=== PATIENT | female | born 1990 | race Caucasian/White ===

== ENCOUNTER 2016-07-04 17:47 | Emergency (ER) | payer BC, OTHER ==
[2016-07-04] MEDS ORDERED: NS 0.9% 1000 ML* 1,000 ML IV SCH (19:00)
[2016-07-04 19:20] LABS: Hematocrit 41 % (35-47); Hemoglobin 13.6 g/dl (12.0-16.0); Mean Corpuscular HGB Conc 33 g/dl (31-36); Mean Corpuscular Hemoglobin 32 pg (27-31); Mean Corpuscular Volume 96 fL (80-97); Mean Platelet Volume 7 um3 (7.4-10.4); Red Blood Count 4.21 10^6/ul (4.0-5.4); Red Cell Distribution Width 13 % (10.5-15); White Blood Count 11.4 10^3/ul (3.5-10.8)
[2016-07-04 19:35] LABS: Albumin 4.1 g/dL (3.2-5.2); BUN/Creatinine Ratio 18.4 (8-20); C Reactive Protein 3.15 mg/L (< 5.00); Calcium 9.4 mg/dL (8.6-10.3); EGFR Non-African American 79.3 (>60); Potassium 3.3 mmol/L (3.5-5.0); Total Bilirubin 0.4 mg/dL (0.2-1.0); Total Protein 7.1 g/dL (6.4-8.9)
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
[2016-07-04 22:09] VITALS: BP 115/64
--- NOTE | 2016-07-04 22:11 | RAD ---
HISTORY: Pelvic cramping in a female Last menstrual period is dated May 22, 2016 yielding an estimated gestational age by last menstrual period of 6 weeks and 1 day. COMPARISONS: None TECHNIQUE: Multiple transverse and longitudinal ultrasound images were obtained of the pelvis using grayscale, color flow, spectral and M-mode sonographic imaging. FINDINGS: UTERUS: The uterus is normal in shape, size, contour, and echotexture. GESTATION: A gestational sac is identified measuring 1.1 cm in mean diameter which corresponds to a gestational age of 5 weeks and 5 days. No pole is visualized. A 3 mm yolk sac is visualized. 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 CUL-DE-SAC: There is no free fluid within the cul-de-sac. RIGHT OVARY: The right ovary measures 3.0 x 2.3 x 2.3 cm. LEFT OVARY: The left ovary measures 4.1 x 2.0 x 3.4 cm. Within the left ovary is a mildly echogenic and avascular structure measuring 2.1 cm in greatest dimension which could represent a corpus luteum. IMPRESSION: There is a gestational sac with a yolk sac in the lumen without visualization of a pole. Diagnostic possibilities include spontaneous , gestation too early to visualize or ectopic . Close clinical and sonographic follow-up including trending beta hCG is advised.
[2016-07-04 22:33] LABS: Urine Bacteria Absent (Absent); Urine Bilirubin Negative (Negative); Urine Glucose Negative (Negative); Urine Nitrite Negative (Negative)
== END 2016-07-04 22:07 | disposition home or self-care (01) ==
LOC: ED 17:47
DX: O26.891 Other specified pregnancy related conditions, first trimester (principal); R10.31 Right lower quadrant pain; O99.331 Smoking (tobacco) complicating pregnancy, first trimester; Z3A.01 Less than 8 weeks gestation of pregnancy
CPT/HCPCS: 36415; 76817; 80053; 81003; 81015; 83030; 83605; 83690; 84702; 85025; 86140; 99283

== ENCOUNTER 2016-08-10 11:49 | Emergency (ER) | payer BC ==
[2016-08-10 11:56] VITALS: BP 105/56
[2016-08-10] MEDS ORDERED: Acetaminop/Codeine 30 MG TAB* 1 TAB (300 MG/30 MG) PO ONE (13:01)
[2016-08-10] MEDS ORDERED: Clindamycin CAP* 150 MG PO ONE (13:10)
--- NOTE | 2016-08-10 13:15 | UC ---
Dental HPI - HPI Summary HPI Summary: L rear tooth pain worsening for several days. States the tooth broke weeks/ months ago but never bothered her before now. Taking acetaminophen without relief, has noticed swelling along jaw today. Called dentist who said she would probably need an antibiotic. - History of Current Complaint Chief Complaint: UCDentalProblem Stated Complaint: DENTAL Time Seen by Provider: 08/10/16 12:44 Hx Obtained From: Patient Hx Last Menstrual Period: 05/30/16 ?: Yes Onset/Duration: Gradual Onset, Lasting Days Aggravating: Heat, Cold, Chewing Alleviating: Nothing - Allergies/Home Medications Allergies/Adverse Reactions: Allergies Allergy/AdvReac Type Severity Reaction Status Date / Time Amoxicillin [From Augmentin] Allergy Nausea Verified 08/17/13 10:50 Clavulanic Acid Allergy Nausea Verified 08/17/13 10:50 [From Augmentin] Sulfamethoxazole Allergy Swelling Verified 08/17/13 10:50 w/Trimethoprim [From Bactrim] PMH/Surg Hx/FS Hx/Imm Hx Previously Healthy: Yes - Surgical History Surgical History: None - Family History Known Family History: Positive: Hypertension, Diabetes, Other - colon cancer - Social History Occupation: Employed Full-time Lives: With Family Alcohol Use: None Substance Use Type: None Smoking Status (MU): Light Every Day Tobacco Smoker Type: Cigarettes Amount Used/How Often: 1/2 ppd Have You Smoked in the Last Year: Yes Review of Systems Constitutional: Negative Skin: Negative Eyes: Negative ENT: Dental Pain Respiratory: Negative Cardiovascular: Negative Gastrointestinal: Negative Genitourinary: Negative Motor: Negative Neurovascular: Negative Musculoskeletal: Negative Neurological: Negative Psychological: Negative All Other Systems Reviewed And Are Negative: Yes Physical Exam Triage Information Reviewed: Yes Appearance: Well-Appearing, Well-Nourished, Pain Distress - mild Vital Signs: Initial Vital Signs Temp 98.6 F 08/10/16 11:53 Pulse 92 08/10/16 11:53 Resp 18 08/10/16 11:53 BP 105/56 08/10/16 11:53 Pulse Ox 99 08/10/16 11:53 Vital Signs Reviewed: Yes Eye Exam: Normal Eyes: Positive: Conjunctiva Clear ENT Exam: Normal ENT: Positive: Normal ENT inspection, Hearing grossly normal, Pharynx normal, TMs normal. Negative: Tonsillar swelling, Tonsillar exudate Dental: Positive: Percussion Tenderness @ - #17, Dental Fracture @ - #17, Abscess @ - #17 Neck exam: Normal Neck: Positive: Supple, Nontender, No Lymphadenopathy Respiratory Exam: Normal Respiratory: Positive: Chest non-tender, Lungs clear, Normal breath sounds, No respiratory distress, No accessory muscle use Cardiovascular Exam: Normal Cardiovascular: Positive: RRR, No Murmur Musculoskeletal Exam: Normal Neurological Exam: Normal Neurological: Positive: Alert Psychological Exam: Normal Skin Exam: Normal Dental Complaint Course/Dx - Differential Dx/Diagnosis Provider Diagnoses: Dental abscess #17 Discharge - Discharge Plan Condition: Stable Disposition: HOME Prescriptions: Acetaminop/Codeine 30 MG TAB* [Tylenol/Codeine 30 MG TAB*] 1 - 2 tab PO Q8H PRN #15 tab MDD 6 PRN Reason: Pain Clindamycin Cap(NF) [Cleocin 300 mg Cap(NF)] 300 mg PO QID #28 cap Patient Education Materials: Dental Abscess (ED) Referrals: No Primary Care Phys,NOPCP [Primary Care Provider] - Additional Instructions: Follow up with your dentist as soon as possible for definitive treatment. Come back here if you develop fever, severe pain, or worsening symptoms.
== END 2016-08-10 13:26 | disposition home or self-care (01) ==
LOC: UCEAST 11:49
DX: K04.7 Periapical abscess without sinus (principal); F17.210 Nicotine dependence, cigarettes, uncomplicated; Z88.0 Allergy status to penicillin; Z88.2 Allergy status to sulfonamides
CPT/HCPCS: 99212; A9270-GY; G0463

== ENCOUNTER 2016-10-05 19:14 | Emergency (ER) | payer BC ==
[2016-10-05 19:22] VITALS: BP 114/61
--- NOTE | 2016-10-05 20:38 | UC ---
Kishor Prince Benjamin, scribed for Leona Clifton MD on 10/05/16 at 203 . Complaint Female HPI - HPI Summary HPI Summary: 5month 25yo female c/o left flank pain and pelvic pressure. Pt has hx of left kidney failure. Yesterday, pt felt pelvic pressure and discomfort, and early this afternoon, pt started to have mild left back pain. Pt also reports increased urgency in urine, and darker urine than normal, but denies any vaginal discharge or itching, foul odor. No fever/chills. Pt felt nauseous, but also all throughout her . Pt states she has felt good baby movement today. Pt talked to her NUCLEAR RADIATION ENGINEER nurse calender operator helper and was directed to comd here for urinalysis. Pt is scheduled to follow up with him tomorrow morning. PT debi spoke to her heading saw operator yesterday regarding her pelvic pressure and was told related to pelvic muscles stretching. Pt is a smoker but is currently cutting down. Pt hs had good po. No analgesia taken FHx of renal diseases and Sz. Reviewed pts medication and allergy lists. - History Of Current Complaint Chief Complaint: UCGU Stated Complaint: KIDNEY PAIN, AND PELVIC PRESSURE Time Seen by Provider: 10/05/16 20:10 Hx Obtained From: Patient, Family/Concrete Mixer - Hx Last Menstrual Period: 05/30/16 ?: Yes Onset/Duration: Sudden Onset, Lasting Hours - snice this afternoon, Still Present Timing: Constant Severity Initially: Mild Severity Currently: Moderate Pain Intensity: 8 Pain Scale Used: 0-10 Numeric Aggravating Factor(s): Nothing Alleviating Factor(s): Nothing Associated Signs And Symptoms: Positive: Nausea - chronic throughout her current . Negative: Vaginal Bleeding/Discharge, Vaginal Discharge - Allergies/Home Medications Allergies/Adverse Reactions: Allergies Allergy/AdvReac Type Severity Reaction Status Date / Time Amoxicillin [From Augmentin] Allergy Nausea Verified 08/17/13 10:50 Clavulanic Acid Allergy Nausea Verified 08/17/13 10:50 [From Augmentin] Sulfamethoxazole Allergy Swelling Verified 08/17/13 10:50 w/Trimethoprim [From Bactrim] PMH/Surg Hx/FS Hx/Imm Hx Previously Healthy: Yes GI/ History: Renal Disease - Surgical History Surgical History: None - Family History Known Family History: Positive: Hypertension, Diabetes, Other - colon cancer - Social History Occupation: Employed Full-time Lives: With Family Alcohol Use: None Substance Use Type: None Smoking Status (MU): Light Every Day Tobacco Smoker Type: Cigarettes Amount Used/How Often: 1/2 ppd Have You Smoked in the Last Year: Yes Review of Systems Constitutional: Negative Skin: Negative Eyes: Negative ENT: Negative Respiratory: Negative Cardiovascular: Negative Gastrointestinal: Nausea Genitourinary: Urgency - increased, Other - left flank pain; pelvic pressure Motor: Negative Neurovascular: Negative Musculoskeletal: Negative Neurological: Negative Psychological: Negative All Other Systems Reviewed And Are Negative: Yes Physical Exam Triage Information Reviewed: Yes Vital Signs: Initial Vital Signs Temp 98.7 F 10/05/16 19:17 Pulse 84 10/05/16 19:17 Resp 18 10/05/16 19:17 BP 114/61 10/05/16 19:17 Pulse Ox 100 10/05/16 19:17 Vital Signs Reviewed: Yes Eye Exam: Normal ENT: Positive: Hearing grossly normal Dental Exam: Normal Neck exam: Normal Neck: Positive: Supple, Nontender, No Lymphadenopathy Respiratory Exam: Normal Respiratory: Positive: Chest non-tender, Lungs clear, Normal breath sounds, No respiratory distress, No accessory muscle use Cardiovascular: Positive: RRR, No Murmur, Pulses Normal Abdomen Description: Positive: Nontender, Soft, CVA Tenderness (L) - mild abd soft + BS gravid, Other: - FHT 130 doppler by ar Bowel Sounds: Positive: Present Musculoskeletal Exam: Normal Neurological Exam: Normal Psychological Exam: Normal Skin Exam: Normal Diagnostics - Laboratory Diagnostic Studies Completed/Ordered: Doppler by provider: tone 130. POC Urine: Negative. POC : Positive. Re-Evaluation - Re-Evaluation First Eval Re-Evaluation Time: 20:46 Comment: Discussed patient's urine result to the patient. Second Eval Re-Evaluation Time: 20:49 Comment: Discussed pt's course of treatment, disposition, and follow up plans with her NUCLEAR RADIATION ENGINEER doctor. - Will draw CBC and BMP tonight. Will call in morning for an appointment in the morning. OB will arrange for an ultrasound. Pt to go to ED with fevers, chills, vomiting, increased pain or any other questions or concerns Complaint Female Dx - Course Course Of Treatment: PT w5 months with pelvic pressure, urinary frequency and mild left flank pain. Pt directed by her nurse calender operator helper for urinalysis. Discussed with Dr. Kenia Moses (OBGYN) at 20:46 for a OB consult. reviewed urine. Will cbc/bmp tonight. She will arrange ultrasound in am. Pt to call in am for appt. Pt to ED with any concerns or changes. APAP okay - no Motrin - Differential Dx/Diagnosis Provider Diagnoses: flank pain. pelvic pressure Discharge - Discharge Plan Condition: Stable Disposition: HOME Patient Education Materials: Flank Pain (ED) Forms: *Work Release Referrals: Kenia Moses CNM [Manufacturing Software Engineer] - Additional Instructions: You urine result was normal and not concerning for infection You had blood work drawn that your certified nurse calender operator helper will follow-up on with you tomorrow call your OB office tomorrow morning for an appointment - they are expecting you. They will also order an ultrasound to look at your kidney tomorrow If you develop increased pain, fevers, vomiting or ANY other concerns - do directly to the emergency department The documentation as recorded by the Kishor mancuso Benjamin accurately reflects the service I personally performed and the decisions made by , Leona Clifton MD.
[2016-10-06 10:48] LABS: Hematocrit 37 % (35-47); Hemoglobin 12.5 g/dl (12.0-16.0); Mean Corpuscular HGB Conc 34 g/dl (31-36); Mean Corpuscular Hemoglobin 34 pg (27-31); Mean Corpuscular Volume 99 fL (80-97); Mean Platelet Volume 8 um3 (7.4-10.4); Red Cell Distribution Width 13 % (10.5-15)
[2016-10-06 10:57] LABS: Add Diff/Slide Review? Slide Review Added; Comments Flag Yes
[2016-10-06 10:59] LABS: BUN/Creatinine Ratio 21.1 (8-20); Calcium 8.7 mg/dL (8.6-10.3); EGFR African American 265.4 (>60); EGFR Non-African American 206.3 (>60); Potassium 3.6 mmol/L (3.5-5.0)
--- NOTE | 2016-10-06 19:08 | ED ---
Progress - Progress Note Progress Note: CALL PATIENT , WBC HIGH, GO TO ER IF WORSE. Re-Evaluation - Re-Evaluation First Eval Re-Evaluation Time: 20:46 Comment: Discussed patient's urine result to the patient. Second Eval Re-Evaluation Time: 20:49 Comment: Discussed pt's course of treatment, disposition, and follow up plans with her HOUSEKEEPER CAREGIVER doctor. - Will draw CBC and BMP tonight. Will call in morning for an appointment in the morning. OB will arrange for an ultrasound. Pt to go to ED with fevers, chills, vomiting, increased pain or any other questions or concerns Course/Dx - Course Course Of Treatment: PT w5 months with pelvic pressure, urinary frequency and mild left flank pain. Pt directed by her nurse control analyst for urinalysis. Discussed with Dr. Kenia Moses (OBGYN) at 20:46 for a OB consult. reviewed urine. Will cbc/bmp tonight. She will arrange ultrasound in am. Pt to call in am for appt. Pt to ED with any concerns or changes. APAP okay - no Motrin - Diagnoses Provider Diagnoses: Pelvic pain
== END 2016-10-05 21:12 | disposition home or self-care (01) ==
LOC: UCEAST 19:14
DX: R10.30 Lower abdominal pain, unspecified (principal); N94.89 Other specified conditions associated with female genital organs and menstrual cycle; Z88.3 Allergy status to other anti-infective agents; Z88.0 Allergy status to penicillin; N28.9 Disorder of kidney and ureter, unspecified; F17.210 Nicotine dependence, cigarettes, uncomplicated
CPT/HCPCS: 36415; 80048; 81003; 84702; 85025; 99211; G0463

== ENCOUNTER 2016-10-25 10:46 | Emergency (ER) | payer BC ==
[2016-10-25 10:59] VITALS: BP 115/71
--- NOTE | 2016-10-25 11:24 | UC ---
Ear Complaint HPI - HPI Summary HPI Summary: L ear fullness and draining for about 3 days, started the day after taking son to [employer]. Denies pain or fever. Yesterday both eyes were irritated and bloodshot, this morning they were crusted shut and increased bilat eye redness and irritation. No cough or difficulty breathing. - History of Current Complaint Chief Complaint: UCEye Stated Complaint: EYE AND EAR COMPLAINT Time Seen by Provider: 10/25/16 11:00 Hx Obtained From: Patient Hx Last Menstrual Period: 04/2017 ?: Yes Onset/Duration: Sudden Onset, Lasting Days Severity Initially: Mild Severity Currently: Moderate Associated Signs/Symptoms: Positive: Hearing Loss. Negative: URI Symptoms - Allergies/Home Medications Allergies/Adverse Reactions: Allergies Allergy/AdvReac Type Severity Reaction Status Date / Time Amoxicillin [From Augmentin] Allergy Nausea Verified 10/25/16 10:54 Clavulanic Acid Allergy Nausea Verified 10/25/16 10:54 [From Augmentin] Sulfamethoxazole Allergy Swelling Verified 10/25/16 10:54 w/Trimethoprim [From Bactrim] Home Medications: Home Medications Vitamin TAB* 1 tab PO DAILY 10/25/16 [History Confirmed 10/25/16] PMH/Surg Hx/FS Hx/Imm Hx - Additional Past Medical History Additional PMH: L-sided renal failure - Surgical History Surgical History: None - Family History Known Family History: Positive: Hypertension, Diabetes, Other - colon cancer - Social History Occupation: Employed Full-time Lives: With Family Alcohol Use: None Substance Use Type: None Smoking Status (MU): Light Every Day Tobacco Smoker Type: Cigarettes Amount Used/How Often: 2 cig/day Have You Smoked in the Last Year: Yes Review of Systems Constitutional: Negative Skin: Negative Eyes: Drainage, Eye Redness ENT: Ear Ache Respiratory: Negative Cardiovascular: Negative Gastrointestinal: Negative Genitourinary: Negative Motor: Negative Neurovascular: Negative Musculoskeletal: Negative Neurological: Negative Psychological: Negative All Other Systems Reviewed And Are Negative: Yes Physical Exam Triage Information Reviewed: Yes Appearance: Well-Appearing, No Pain Distress, Well-Nourished Vital Signs: Initial Vital Signs Temp 98.1 F 10/25/16 10:55 Pulse 90 10/25/16 10:55 Resp 16 10/25/16 10:55 BP 115/71 10/25/16 10:55 Pulse Ox 100 10/25/16 10:55 Vital Signs Reviewed: Yes Eye Exam: Other - PERRL Eyes: Positive: Conjunctiva Inflamed - bilat, marked, Discharge - clear/tears ENT: Positive: TMs normal, Other: - L ear canal swelling with drainage present. Negative: TM bulging, TM dull, TM red Dental Exam: Normal Neck exam: Normal Neck: Positive: Supple, Nontender, No Lymphadenopathy Respiratory Exam: Normal Respiratory: Positive: Chest non-tender, Lungs clear, Normal breath sounds, No respiratory distress, No accessory muscle use Cardiovascular Exam: Normal Cardiovascular: Positive: RRR, No Murmur Musculoskeletal Exam: Normal Neurological Exam: Normal Neurological: Positive: Alert Skin Exam: Normal Ear Complaint Course/Dx - Differential Dx/Diagnosis Provider Diagnoses: bilat conjunctivitis. L ear otitis externa Discharge - Discharge Plan Condition: Stable Disposition: HOME Prescriptions: Ciprofloxacin 0.3% OPTH.ALDA* [Cipro 0.3% Opth*] 2 drop BOTH EYES Q4H #10 ml Patient Education Materials: Otitis Externa (ED), Conjunctivitis (ED) Referrals: No Primary Care Phys,NOPCP [Primary Care Provider] - Additional Instructions: As we discussed, the redness in your eyes may be from a viral infection (in which case it could take 1-2 weeks to improve). If it is bacterial, it should start to improve in 2-3 days. Every 4 hours, while you are awake, put 2 drops in each eye and 4 drops in your L ear. There is a refill on your prescription in case you run out. You should treat both infections for 7-10 days, or until you have been symptom-free for 2 days.
== END 2016-10-25 11:27 | disposition home or self-care (01) ==
LOC: UCEAST 10:46
DX: H10.9 Unspecified conjunctivitis (principal); H60.92 Unspecified otitis externa, left ear; Z88.3 Allergy status to other anti-infective agents; F17.210 Nicotine dependence, cigarettes, uncomplicated
CPT/HCPCS: 99212; G0463

== ENCOUNTER 2016-12-14 17:53 | Emergency (ER) | payer BC ==
[2016-12-14 18:07] VITALS: BP 111/75
--- NOTE | 2016-12-14 18:26 | UC ---
Eye Complaint HPI - HPI Summary HPI Summary: Since this morning pt has had marked redness in L eye with minimal drainage. Also has had drainage from L ear for a few days, seemed more swollen today. Has both of these issues together a few weeks ago, used cipro drops in both of them and they cleared up. Pt has young children at home. Also has noticed painful lump at angle of R jaw since yesterday. Denies fever or ST, no nasal congestion or cough. - History of Current Complaint Hx Obtained From: Patient Hx Last Menstrual Period: April 2016 ?: Yes Onset/Duration: Gradual Onset, Lasting Hours Timing: Constant Severity Initially: Mild Severity Currently: Moderate Character: Dull Aggravating Factor(s): Nothing Alleviating Factor(s): Nothing Associated Signs And Symptoms: Negative: Photophobia, Vision Impairment Right, Vision Impairment Left - Risk Factors Penetrating Injury Risk Factor: Negative <Ashley Alaniz - Last Filed: 12/14/16 18:35> <Leona Clifton - Last Filed: 12/14/16 19:24> - History of Current Complaint Chief Complaint: UCEye Stated Complaint: SINUS COMPLAINT Time Seen by Provider: 12/14/16 18:08 - Allergies/Home Medications Allergies/Adverse Reactions: Allergies Allergy/AdvReac Type Severity Reaction Status Date / Time Amoxicillin [From Augmentin] Allergy Nausea Verified 12/14/16 18:07 Clavulanic Acid Allergy Nausea Verified 12/14/16 18:07 [From Augmentin] Sulfamethoxazole Allergy Swelling Verified 12/14/16 18:07 w/Trimethoprim [From Bactrim] PMH/Surg Hx/FS Hx/Imm Hx Other GI/ History: L kidney failure - Surgical History Surgical History: None - Family History Known Family History: Positive: Hypertension, Diabetes, Other - colon cancer - Social History Lives: With Family Alcohol Use: None Substance Use Type: None Smoking Status (MU): Light Every Day Tobacco Smoker Type: Cigarettes Amount Used/How Often: 2 cig/day Have You Smoked in the Last Year: Yes <Ashley Alaniz - Last Filed: 12/14/16 18:35> Review of Systems Constitutional: Negative Skin: Negative Eyes: Eye Redness ENT: Ear Ache, Other - painful lump Respiratory: Negative Cardiovascular: Negative Gastrointestinal: Negative Genitourinary: Negative Motor: Negative Neurovascular: Negative Musculoskeletal: Negative Neurological: Negative Psychological: Negative Is Patient Immunocompromised?: No All Other Systems Reviewed And Are Negative: Yes <Ashley Alaniz - Last Filed: 12/14/16 18:35> Physical Exam Triage Information Reviewed: Yes Appearance: Well-Appearing, No Pain Distress, Well-Nourished Vital Signs: Initial Vital Signs Temp 98.4 F 12/14/16 18:03 Pulse 92 12/14/16 18:03 Resp 18 12/14/16 18:03 BP 111/75 12/14/16 18:03 Pulse Ox 100 12/14/16 18:03 Vital Signs Reviewed: Yes Eyes: Positive: Conjunctiva Inflamed - L, marked, only minimal discharge at punctum ENT: Positive: Hearing grossly normal, Pharynx normal, TMs normal - R TM normal , Other: - L ear canal with discharge and swelling. Negative: Nasal congestion , Nasal drainage Dental Exam: Normal Neck: Positive: Supple, Enlarged Nodes @ - R tonsillar Respiratory Exam: Normal Respiratory: Positive: Chest non-tender, Lungs clear, Normal breath sounds, No respiratory distress, No accessory muscle use Cardiovascular Exam: Normal Cardiovascular: Positive: RRR, No Murmur Musculoskeletal Exam: Normal Neurological Exam: Normal Neurological: Positive: Alert Psychological Exam: Normal Skin Exam: Other - 3 round hyperpigmented areas on L cheek with abrasions in the center, consistent with old insect bites <Ashley Alaniz - Last Filed: 12/14/16 18:35> Vital Signs: Initial Vital Signs Temp 98.4 F 12/14/16 18:03 Pulse 92 12/14/16 18:03 Resp 18 12/14/16 18:03 BP 111/75 12/14/16 18:03 Pulse Ox 100 12/14/16 18:03 <Leona Clifton - Last Filed: 12/14/16 19:24> Eye Complaint Course/Dx - Differential Dx/Diagnosis Provider Diagnoses: L conjunctivitis. L otitis externa <Ashley Alaniz - Last Filed: 12/14/16 18:35> Discharge <Ashley Alaniz - Last Filed: 12/14/16 18:35> <Leona Clifton - Last Filed: 12/14/16 19:24> - Discharge Plan Condition: Stable Disposition: HOME Prescriptions: Ciprofloxacin 0.3% OPTH.ALDA* [Cipro 0.3% Opth*] 2 drop BOTH EYES Q4H #10 ml Patient Education Materials: Conjunctivitis (ED), Otitis Externa (ED) Forms: *Work Release Referrals: No Primary Care Phys,NOPCP [Primary Care Provider] - Additional Instructions: Put 1-2 drops of medicine in L eye every 2-4 hours and put 4 drops in L ear 4 times per day until symptoms resolve for at least 48 hours. If you are not improving within 5 days, please return here. Attestation Statement User Type: Provider - I was available for consult. This patient was seen by the JAIME. The patient was not presented to, seen by, or examined by me. -Karime <Leona Clifton - Last Filed: 12/14/16 19:24>
== END 2016-12-14 18:30 | disposition home or self-care (01) ==
LOC: UCEAST 17:53
DX: H10.9 Unspecified conjunctivitis (principal); H60.92 Unspecified otitis externa, left ear; N19 Unspecified kidney failure; F17.210 Nicotine dependence, cigarettes, uncomplicated; Z88.1 Allergy status to other antibiotic agents; Z88.2 Allergy status to sulfonamides
CPT/HCPCS: 99212; G0463

== ENCOUNTER 2017-02-26 23:10 | Inpatient (IN) | payer OTHER ==
[2017-02-27] MEDS ORDERED: Promethazine INJ(RESTRICTED)* 25 MG/ML 1 ML VIAL IV ONE (00:03)
[2017-02-27] MEDS ORDERED: Nalbuphine* 20 MG/ML 1 ML VIAL IV ONE (00:03)
[2017-02-27 01:11] LABS: Hematocrit 36 % (35-47); Hemoglobin 12.4 g/dl (12.0-16.0); Mean Corpuscular HGB Conc 35 g/dl (31-36); Mean Corpuscular Hemoglobin 33 pg (27-31); Mean Corpuscular Volume 94 fL (80-97); Mean Platelet Volume 8 um3 (7.4-10.4); Platelet Count 322 10^3/ul (150-450); Red Blood Count 3.77 10^6/ul (4.0-5.4); Red Cell Distribution Width 14 % (10.5-15); White Blood Count 18.1 10^3/ul (3.5-10.8)
[2017-02-27] MEDS ORDERED: OBEPIDURAL* 250 ML EPIDURAL ONE (01:27)
[2017-02-27] MEDS ORDERED: Famotidine TAB* 20 MG PO PRN (02:06)
[2017-02-27] MEDS ORDERED: Sodium Citrate/Citric Acid* 15 ML UDC PO PRN (02:06)
[2017-02-27] MEDS ORDERED: Phenylephrine IV* 40 MCG/ML 10 ML SYRINGE IV PUSH PRN ×2 (02:06)
[2017-02-27] MEDS ORDERED: OBEPIDURAL* 250 ML EPIDURAL SCH (03:00)
[2017-02-27] MEDS ORDERED: Acetaminophen TAB* 325 MG PO PRN (05:51)
[2017-02-27] MEDS ORDERED: Glycerin ADULT SUPP PR PRN (05:51)
[2017-02-27] MEDS ORDERED: Witch Hazel PAD* JAR TOPICAL PRN (05:51)
[2017-02-27] MEDS ORDERED: Dibucaine 1% 28.35 GM TUBE PR PRN (05:51)
[2017-02-27] MEDS ORDERED: Oxytocin in LR* 20 UNITS/1,000 ML BAG IVPB SCH (06:00)
[2017-02-27] MEDS ORDERED: OXYTOCIN* 10 UNITS/ML 1 ML VIAL ONE (06:51)
[2017-02-27] MEDS ORDERED: Simethicone TAB* 80 MG TAB.CHEW PO SCH (08:30)
[2017-02-27] MEDS: Docusate CAP* 100 MG PO SCH ×3 (08:53→20:54)
[2017-02-27] MEDS: Ibuprofen TAB* 600 MG PO PRN ×2 (10:56→17:03)
[2017-02-28] MEDS: Ibuprofen TAB* 600 MG PO PRN ×2 (02:41→09:02)
[2017-02-28 06:38] LABS: ABS Basophils 0.1 10^3/ul (0-0.2); ABS Eosinophils 0.3 10^3/ul (0-0.6); ABS Lymphocytes 3.7 10^3/ul (1.0-4.8); ABS Monocytes 0.6 10^3/ul (0-0.8); ABS Neutrophils 8.4 10^3/ul (1.5-7.7); ABS Nucleated RBC 0.01 10^3/ul; Eosinophil % 1.9 % (0-6); Hematocrit 31 % (35-47); Hemoglobin 10.8 g/dl (12.0-16.0); Lymphocyte % 28.4 % (25-47); Mean Corpuscular HGB Conc 35 g/dl (31-36); Mean Corpuscular Hemoglobin 33 pg (27-31); Mean Corpuscular Volume 95 fL (80-97); Mean Platelet Volume 7 um3 (7.4-10.4); Nucleated Red Blood Cells % 0.1; Platelet Count 265 10^3/ul (150-450); Red Blood Count 3.28 10^6/ul (4.0-5.4); Red Cell Distribution Width 14 % (10.5-15)
[2017-02-28] MEDS ORDERED: Varicella Virus Vaccine Live* 0.5 ML VIAL SUBCUT ONE (09:00)
[2017-02-28] MEDS ORDERED: Ferrous Gluconate TAB* 324 MG TAB PO SCH (09:00)
[2017-02-28] MEDS: Docusate CAP* 100 MG PO SCH (09:01)
[2017-02-28 11:35] VITALS: BP 117/66
== END 2017-02-28 13:15 | disposition home or self-care (01) | DRG 560 ==
LOC: MCHOBOUT 23:10 → MCHOB 02-27 00:53
PROVIDERS: ADMIT Midwife; ATTEND Midwife
PROC: 10E0XZZ Delivery of Products of Conception, External Approach (ICD-10-PCS; principal; 2017-02-28)
PROC: 10907ZC Drainage of Amniotic Fluid, Therapeutic from Products of Conception, Via Natural or Artificial Opening (ICD-10-PCS; 2017-02-28)
PROC: 0HQ9XZZ Repair Perineum Skin, External Approach (ICD-10-PCS; 2017-02-28)
PROC: 4A1HXCZ Monitoring of Products of Conception, Cardiac Rate, External Approach (ICD-10-PCS; 2017-02-28)
DX: O69.81X0 Labor and delivery complicated by cord around neck, without compression, not applicable or unspecified (principal); F17.200 Nicotine dependence, unspecified, uncomplicated; Z88.1 Allergy status to other antibiotic agents; O99.334 Smoking (tobacco) complicating childbirth; O32.8XX0 Maternal care for other malpresentation of fetus, not applicable or unspecified; Z88.2 Allergy status to sulfonamides; Z87.440 Personal history of urinary (tract) infections; O70.0 First degree perineal laceration during delivery; Z3A.39 39 weeks gestation of pregnancy; Z37.0 Single live birth
CPT/HCPCS: 36415; 85025; 85027; 86850; 86900; 86901; A9270-GY; J2300; J2550; J2590

== ENCOUNTER 2018-10-03 12:35 | Emergency (ER) | payer MEDICAID, OTHER ==
[2018-10-03 12:40] VITALS: BP 123/78
== END 2018-10-03 13:57 | disposition home or self-care (01) ==
LOC: ED 12:35
DX: O26.899 Other specified pregnancy related conditions, unspecified trimester (principal); R10.9 Unspecified abdominal pain; Z53.21 Procedure and treatment not carried out due to patient leaving prior to being seen by health care provider
CPT/HCPCS: 99281

== ENCOUNTER 2018-10-03 15:03 | Emergency (ER) | payer OTHER ==
[2018-10-03 16:55] VITALS: BP 121/79
[2018-10-03 17:17] LABS: ABS Eosinophils 0.1 10^3/ul (0-0.6); ABS Lymphocytes 2.7 10^3/ul (1.0-4.8); ABS Monocytes 0.3 10^3/ul (0-0.8); ABS Neutrophils 5.4 10^3/ul (1.5-7.7); Eosinophil % 1.4 %; Hematocrit 43 % (35-47); Hemoglobin 15.1 g/dL (12.0-16.0); Lymphocyte % 31.6 %; Mean Corpuscular HGB Conc 35 g/dL (31-36); Mean Corpuscular Hemoglobin 34 pg (27-31); Mean Corpuscular Volume 95 fL (80-97); Mean Platelet Volume 6.6 fL (7.4-10.4); Platelet Count 293 10^3/uL (150-450); Red Blood Count 4.52 10^6 /uL (3.70-4.87); Red Cell Distribution Width 13 % (10-15); White Blood Count 8.6 10^3/uL (3.5-10.8)
[2018-10-03 17:33] LABS: Albumin 4.8 g/dL (3.2-5.2); Albumin/Globulin Ratio 1.5 (1-3); BUN/Creatinine Ratio 10.3 (8-20); C Reactive Protein 2.68 mg/L (<8.01); EGFR African American 107.2 (>60); EGFR Non-African American 88.6 (>60); Globulin 3.1 g/dL (2-4); Potassium 3.4 mmol/L (3.5-5.0); Total Bilirubin 0.6 mg/dL (0.2-1.0); Total Protein 7.9 g/dL (6.4-8.9)
[2018-10-03 17:57] LABS: Urine Appearance Cloudy; Urine Bacteria Absent (Absent); Urine Bilirubin Negative (Negative); Urine Blood Negative (Negative); Urine Color Yellow; Urine Glucose Negative (Negative); Urine Ketones Trace (Negative); Urine Nitrite Negative (Negative); Urine Protein Negative (Negative); Urine Red Blood Cell Absent (Absent); Urine Specific Gravity 1.015 (1.010-1.030); Urine Squamous Epithelial Cell Present (Absent); Urine Urobilinogen Negative (Negative); Urine White Blood Cell Trace(0-5/hpf) (Absent)
[2018-10-03] MEDS ORDERED: Acetaminophen TAB* 325 MG PO ONE (17:58)
[2018-10-03] MEDS ORDERED: Potassium Chlor TAB* 20 MEQ TAB.ER PO ONE (18:47)
--- NOTE | 2018-10-03 18:59 | ED ---
Abdominal Pain/Female - HPI Summary HPI Summary: Patient with history of positive home test 2 days ago complains of sudden onset left lower quadrant cramping starting last night with associated increased urinary urge and migraine headache. Patient states abdominal pain is intermittent, lasts seconds to minutes at a time and then returns to normal baseline. History of migraine headaches which are usually unilateral, states this one is diffuse, accompanied with photosensitivity. Denies fever, cough, sore throat, CP, SOB, N/V/D, change in BM, vaginal symptoms. Medical history is migraines. Abdominal surgical history is none. . - History of Current Complaint Chief Complaint: EDOBProblems Stated Complaint: UNKOWN PREG CRAMPING Time Seen by Provider: 10/03/18 17:21 Hx Obtained From: Patient Hx Last Menstrual Period: April 2016 Onset/Duration: Sudden Onset, Lasting Hours Timing: Minutes Severity Initially: Mild Severity Currently: Moderate Pain Intensity: 6 Pain Scale Used: 0-10 Numeric Location: Discrete At: LLQ Radiates: No Character: Cramping Aggravating Factor(s): Nothing Alleviating Factor(s): Nothing Associated Signs and Symptoms: Positive: Urinary Symptoms Allergies/Adverse Reactions: Allergies Allergy/AdvReac Type Severity Reaction Status Date / Time amoxicillin [From Augmentin] Allergy Vomiting Verified 10/03/18 15:10 clavulanic acid Allergy Vomiting Verified 10/03/18 15:10 [From Augmentin] sulfamethoxazole Allergy Swelling Verified 10/03/18 15:10 [From Bactrim] trimethoprim [From Bactrim] Allergy Swelling Verified 10/03/18 15:10 PMH/Surg Hx/FS Hx/Imm Hx Endocrine/Hematology History: Denies: Hx Diabetes, Hx Thyroid Disease Cardiovascular History: Denies: Hx Congestive Heart Failure, Hx Hypertension Respiratory History: Denies: Hx Asthma, Hx Chronic Obstructive Pulmonary Disease (COPD) GI History: Denies: Hx Ulcer History: Reports: Hx Renal Disease - PT. STATES LEFT KIDNEY HAS FAILED IN THE PAST. Denies: Hx Dialysis, Hx Kidney Infection, Other Problems/Disorders Sensory History: Denies: Hx Eye Prosthesis Opthamlomology History: Denies: Hx Legally Blind EENT History: Denies: Hx Deafness Neurological History: Denies: Hx Developmental Delay Psychiatric History: Denies: Hx Anxiety, Hx Depression, Other Psychiatric Issues/Disorders Infectious Disease History: No Infectious Disease History: Reports: Hx of Known/Suspected MRSA - Lower right abdomen Denies: Hx Clostridium Difficile, Hx Hepatitis, Hx Human Immunodeficiency Virus (HIV), Hx Shingles, Hx Tuberculosis, Hx Known/Suspected VRE, Hx Known/ Suspected VRSA, History Other Infectious Disease, Traveled Outside the [place] in Last 30 Days - Family History Known Family History: Positive: Hypertension, Diabetes, Other - colon cancer - Social History Alcohol Use: None Substance Use Type: Reports: None Smoking Status (MU): Light Every Day Tobacco Smoker Type: Cigarettes Amount Used/How Often: "occ cigs here and there" Have You Smoked in the Last Year: Yes Review of Systems Constitutional: Negative Eyes: Negative ENT: Negative Cardiovascular: Negative Respiratory: Negative Positive: Abdominal Pain Positive: urgency Musculoskeletal: Negative Skin: Negative Neurological: Negative Psychological: Normal All Other Systems Reviewed And Are Negative: Yes Physical Exam - Summary Physical Exam Summary: Tenderness in left lower quadrant. Abdominal exam otherwise unremarkable. No CVA tenderness bilaterally. Triage Information Reviewed: Yes Vital Signs On Initial Exam: Initial Vitals Temp Pulse Resp BP Pulse Ox 98.2 F 87 16 125/77 9 10/03/18 15:05 10/03/18 15:05 10/03/18 15:05 10/03/18 15:05 10/03/18 15:05 Vital Signs Reviewed: Yes Appearance: Positive: Well-Appearing Skin: Positive: Warm Head/Face: Positive: Normal Head/Face Inspection Eyes: Positive: Normal Neck: Positive: Supple Respiratory/Lung Sounds: Positive: Clear to Auscultation Cardiovascular: Positive: Normal Abdomen Description: Positive: Other: Musculoskeletal: Positive: Normal - A portable Neurological: Positive: Normal Psychiatric: Positive: Normal AVPU Assessment: Alert - Coulters Coma Scale Best Eye Response: 4 - Spontaneous Best Motor Response: 6 - Obeys Commands Best Verbal Response: 5 - Oriented Coma Scale Total: 15 Diagnostics - Vital Signs Vital Signs Temp Pulse Resp BP Pulse Ox 10/03/18 16:54 98.2 F 80 18 121/79 100 10/03/18 15:05 98.2 F 87 16 125/77 9 - Laboratory Lab Results: Lab Results 10/03/18 10/03/18 10/03/18 Range/Units 17:10 17:10 17:10 WBC 8.6 (3.5-10.8) 10^3/uL RBC 4.52 (3.70-4.87) 10^6 /uL Hgb 15.1 (12.0-16.0) g/dL Hct 43 (35-47) % MCV 95 (80-97) fL MCH 34 H (27-31) pg MCHC 35 (31-36) g/dL RDW 13 (10-15) % Plt Count 293 (150-450) 10^3/uL MPV 6.6 L (7.4-10.4) fL Neut % (Auto) 62.9 % Lymph % (Auto) 31.6 % [place] % (Auto) 3.6 % Eos % (Auto) 1.4 % Baso % (Auto) 0.5 % Absolute Neuts (auto) 5.4 (1.5-7.7) 10^3/ul Absolute Lymphs (auto) 2.7 (1.0-4.8) 10^3/ul Absolute Monos (auto) 0.3 (0-0.8) 10^3/ul Absolute Eos (auto) 0.1 (0-0.6) 10^3/ul Absolute Basos (auto) 0.0 (0-0.2) 10^3/ul Absolute Nucleated RBC 0.0 10^3/ul Nucleated RBC % 0.0 Sodium 140 (135-145) mmol/L Potassium 3.4 L (3.5-5.0) mmol/L Chloride 108 (101-111) mmol/L Carbon Dioxide 25 (22-32) mmol/L Anion Gap 7 (2-11) mmol/L BUN 8 (6-24) mg/dL Creatinine 0.78 (0.51-0.95) mg/dL Est GFR ( Amer) 107.2 (>60) Est GFR (Non-Af Amer) 88.6 (>60) BUN/Creatinine Ratio 10.3 (8-20) Glucose 113 H (70-100) mg/dL Lactic Acid 1.0 (0.5-2.0) mmol/L Calcium 10.0 (8.6-10.3) mg/dL Total Bilirubin 0.60 (0.2-1.0) mg/dL AST 16 (13-39) U/L ALT 25 (7-52) U/L Alkaline Phosphatase 61 (34-104) U/L C-Reactive Protein 2.68 (<8.01) mg/L Total Protein 7.9 (6.4-8.9) g/dL Albumin 4.8 (3.2-5.2) g/dL Globulin 3.1 (2-4) g/dL Albumin/Globulin Ratio 1.5 (1-3) Lipase 11 (11.0-82.0) U/L Beta HCG, Quant 3615.00 mIU/mL Urine Color Urine Appearance Urine pH (5-9) Ur Specific [place] (1.010-1.030) Urine Protein (Negative) Urine Ketones (Negative) Urine Blood (Negative) Urine Nitrate (Negative) Urine Bilirubin (Negative) Urine Urobilinogen (Negative) Ur Leukocyte Esterase (Negative) Urine WBC (Auto) (Absent) Urine RBC (Auto) (Absent) Ur Squamous Epith Cells (Absent) Urine Bacteria (Absent) Urine Glucose (Negative) 10/03/18 Range/Units 17:35 WBC (3.5-10.8) 10^3/uL RBC (3.70-4.87) 10^6 /uL Hgb (12.0-16.0) g/dL Hct (35-47) % MCV (80-97) fL MCH (27-31) pg MCHC (31-36) g/dL RDW (10-15) % Plt Count (150-450) 10^3/uL MPV (7.4-10.4) fL Neut % (Auto) % Lymph % (Auto) % [place] % (Auto) % Eos % (Auto) % Baso % (Auto) % Absolute Neuts (auto) (1.5-7.7) 10^3/ul Absolute Lymphs (auto) (1.0-4.8) 10^3/ul Absolute Monos (auto) (0-0.8) 10^3/ul Absolute Eos (auto) (0-0.6) 10^3/ul Absolute Basos (auto) (0-0.2) 10^3/ul Absolute Nucleated RBC 10^3/ul Nucleated RBC % Sodium (135-145) mmol/L Potassium (3.5-5.0) mmol/L Chloride (101-111) mmol/L Carbon Dioxide (22-32) mmol/L Anion Gap (2-11) mmol/L BUN (6-24) mg/dL Creatinine (0.51-0.95) mg/dL Est GFR ( Amer) (>60) Est GFR (Non-Af Amer) (>60) BUN/Creatinine Ratio (8-20) Glucose (70-100) mg/dL Lactic Acid (0.5-2.0) mmol/L Calcium (8.6-10.3) mg/dL Total Bilirubin (0.2-1.0) mg/dL AST (13-39) U/L ALT (7-52) U/L Alkaline Phosphatase (34-104) U/L C-Reactive Protein (<8.01) mg/L Total Protein (6.4-8.9) g/dL Albumin (3.2-5.2) g/dL Globulin (2-4) g/dL Albumin/Globulin Ratio (1-3) Lipase (11.0-82.0) U/L Beta HCG, Quant mIU/mL Urine Color Yellow Urine Appearance Cloudy Urine pH 6.0 (5-9) Ur Specific [place] 1.015 (1.010-1.030) Urine Protein Negative (Negative) Urine Ketones Trace A (Negative) Urine Blood Negative (Negative) Urine Nitrate Negative (Negative) Urine Bilirubin Negative (Negative) Urine Urobilinogen Negative (Negative) Ur Leukocyte Esterase Trace A (Negative) Urine WBC (Auto) Trace(0-5/hpf) (Absent) Urine RBC (Auto) Absent (Absent) Ur Squamous Epith Cells Present A (Absent) Urine Bacteria Absent (Absent) Urine Glucose Negative (Negative) Result Diagrams: 10/03/18 17:10 10/03/18 17:10 Lab Statement: Any lab studies that have been ordered have been reviewed, and results considered in the medical decision making process. Abdominal Pain Fem Course/Dx - Course Course Of Treatment: Patient with history of positive home test 2 days ago complains of sudden onset left lower quadrant cramping starting last night with associated increased urinary urge and migraine headache. Patient states abdominal pain is intermittent, lasts seconds to minutes at a time and then returns to normal baseline. History of migraine headaches which are usually unilateral, states this one is diffuse, accompanied with photosensitivity. Denies fever, cough, sore throat, CP, SOB, N/V/D, change in BM, vaginal symptoms. Medical history is migraines. Abdominal surgical history is none. . Vital signs within normal limits. Potassium 3.4. HCG 3600. Labs otherwise unremarkable. Transvaginal ultrasound results: Questionable gestational sac noted with a mean sac diameter measuring approximately 5 weeks 0 days. Questionable pole noted measuring 1 mm. There is no yolk sac visualized. There is no heart rate noted. Recommend correlation with beta hCG and follow-up sonography. There is a corpus luteal cyst noted in the right ovary measuring 1.5 x 1.0 x 1.3 cm. There is a subchorionic hemorrhage noted measuring approximately 0.81.2 cm. Patient left AMA prior to results of ultrasound. Patient was called later at 20 :20 and was advised of results of ultrasound. Patient was also advised to follow-up with [facility], the ED, urgent care, primary care for repeat hCG levels every 2 days. Patient acknowledged results and stated she understood. Patient would arrange appointment with [facility] and pursue obtaining hCG levels every 48 hours until they could be seen. - Diagnoses Provider Diagnoses: , Abdominal pain Discharge - Sign-Out/Discharge Documenting (check all that apply): Patient Departure Patient Received Moderate/Deep Sedation with Procedure: No - Discharge Plan Condition: Stable Disposition: AGAINST MEDICAL ADVICE Patient Education Materials: Ectopic (DC), Abdominal Pain in (ED) Forms: *Gen. Provider Communication Referrals: No Primary Care Phys,NOPCP [Primary Care Provider] - Additional Instructions: Follow-up with your [facility] or return to the ED for any worsening symptoms. - Billing Disposition and Condition Condition: STABLE Disposition: Against Medical Advice - Attestation Statements Provider Attestation: I am administratively signing this document. I was available for consultation for this patient. I did not evaluate the patient, did not have a doctor/patient relationship with the patient, or participate in any medical decision making or disposition decisions unless I am specifically named in the chart as having consulted on the patient. If I have consulted on the patient, please see my own ED note on the patient encounter. Ludmila Pinto MD
== END 2018-10-03 19:32 | disposition left against medical advice (07) ==
LOC: ED 15:03
DX: O26.891 Other specified pregnancy related conditions, first trimester (principal); N83.11 Corpus luteum cyst of right ovary; R10.32 Left lower quadrant pain; R39.15 Urgency of urination; G43.909 Migraine, unspecified, not intractable, without status migrainosus; Z3A.01 Less than 8 weeks gestation of pregnancy; Z88.1 Allergy status to other antibiotic agents; Z88.2 Allergy status to sulfonamides; Z72.0 Tobacco use
CPT/HCPCS: 36415; 76817; 80053; 81003; 81015; 83605; 83690; 84702; 85025; 86140; 87086; 87088; 99282; A9270-GY

== ENCOUNTER 2019-01-06 04:20 | Emergency (ER) | payer OTHER ==
[2019-01-06] MEDS ORDERED: NS 0.9% 1000 ML** 1,000 ML IV ONE ×2 (04:29→10:18)
[2019-01-06] MEDS ORDERED: Ketorolac INJ* 30 MG/ML 1 ML VIAL IV PUSH ONE (04:35)
--- NOTE | 2019-01-06 04:38 | ED ---
GI/ HPI - HPI Summary HPI Summary: Patient is a 28 y/o F w/ Hx of kidney stones and left-sided pyelonephritis and is 18 weeks who presents to [facility] with complaints of 10/10 right flank pain. 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 When she went to the bathroom, she had difficulty producing urine and had sudden onset of pain. Nausea has been present for the past few days as well. She states that her present pain does not feel similar to past kidney stones. Patient has been taking pre- vitamins. She does note that she had a similar episode when she was with her first child. At the time, patient states she had received US and fluids. Home medications and allergies are reviewed. - History of Current Complaint Stated Complaint: FLANK PAIN PER PT Hx Obtained From: Patient Hx Last Menstrual Period: April 2016 Onset/Duration: Still Present Timing: Constant Severity: Severe Current Severity: Severe Pain Intensity: 10 Location of Pain: Flank - right Associated Signs and Symptoms: Positive: Nausea, Flank Pain - right - Allergy/Home Medications Allergies/Adverse Reactions: Allergies Allergy/AdvReac Type Severity Reaction Status Date / Time amoxicillin [From Augmentin] Allergy Vomiting Verified 10/03/18 15:10 clavulanic acid Allergy Vomiting Verified 10/03/18 15:10 [From Augmentin] sulfamethoxazole Allergy Swelling Verified 10/03/18 15:10 [From Bactrim] trimethoprim [From Bactrim] Allergy Swelling Verified 10/03/18 15:10 PMH/Surg Hx/FS Hx/Imm Hx Endocrine/Hematology History: Denies: Hx Diabetes, Hx Thyroid Disease Cardiovascular History: Denies: Hx Congestive Heart Failure, Hx Hypertension Respiratory History: Denies: Hx Asthma, Hx Chronic Obstructive Pulmonary Disease (COPD) GI History: Denies: Hx Ulcer History: Reports: Hx Kidney Infection, Hx Kidney Stones, Hx Renal Disease - PT. STATES LEFT KIDNEY HAS FAILED IN THE PAST. 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 Denies: Hx Clostridium Difficile, Hx Hepatitis, Hx Human Immunodeficiency Virus (HIV), Hx Shingles, Hx Tuberculosis, Hx Known/Suspected VRE, Hx Known/ Suspected VRSA, History Other Infectious Disease, Traveled Outside the [place] in Last 30 Days - Family History Known Family History: Positive: Hypertension, Diabetes, Other - colon cancer - Social History Alcohol Use: None Substance Use Type: Reports: None Smoking Status (MU): Light Every Day Tobacco Smoker Type: Cigarettes Amount Used/How Often: "occ cigs here and there" Have You Smoked in the Last Year: Yes Review of Systems Positive: Nausea Positive: flank pain - right All Other Systems Reviewed And Are Negative: Yes Physical Exam - Summary Physical Exam Summary: Appearance: Well-appearing, Well-nourished, somewhat restless and colicky in appearance. Left flank tenderness is noted. Skin: Warm, dry, no obvious rash Eyes: sclera anicteric, no conjunctival pallor ENT: mucous membranes moist, pharynx appears normal Neck: Supple, nontender Respiratory: Clear to auscultation, no signs of respiratory distress Cardiovascular: Normal S1, S2. No murmurs. Normal distal pulses in tibial and radial bilaterally. Abdomen: Soft, nontender, normal active bowel sounds present Musculoskeletal: Normal, Strength/ROM Intact Neurological: A&Ox3, awake and alert, mentation is normal, speech is fluent and appropriate Psychiatric: affect is normal, does not appear anxious or depressed Triage Information Reviewed: Yes Vital Signs On Initial Exam: Initial Vitals Temp Pulse Resp BP Pulse Ox 97.7 F 150 20 114/78 98 01/06/19 04:23 01/06/19 04:23 01/06/19 04:23 01/06/19 04:23 01/06/19 04:23 Vital Signs Reviewed: Yes Procedures - Sedation Patient Received Moderate/Deep Sedation with Procedure: No Diagnostics - Vital Signs Vital Signs Temp Pulse Resp BP Pulse Ox 01/06/19 04:23 97.7 F 150 20 114/78 98 - Laboratory Result Diagrams: 01/06/19 05:09 01/06/19 05:09 Lab Statement: Any lab studies that have been ordered have been reviewed, and results considered in the medical decision making process. GIGU Course/Dx - Course Course Of Treatment: Patient is a 28 y/o F w/ Hx of kidney stones and left- sided pyelonephritis and is 18 weeks who presents to [facility] with complaints of 10/10 right flank pain. 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 When she went to the bathroom, she had difficulty producing urine and had sudden onset of pain. Nausea has been present for the past few days as well. She states that her present pain does not feel similar to past kidney stones. Patient has been taking pre-joshua vitamins. She does note that she had a similar episode when she was with her first child. Appearance: Well-appearing, Well-nourished, somewhat restless and colicky in appearance. Left flank tenderness is noted. Bloodwork was obtained. Abnormal values include RBC 3.53, Hgb 11.8, Hct 34, MPV 7, sodium 134, carbon dioxide 21, creatinine 0.48, calcium 8.1, AST 10, total protein 6. During ED course, patient received fluids and toradol 10 mg IV. Patient is signed out to Dr. Riggs at 0700 01/06/19 shift change pending UA results and Renal US. - Diagnoses Provider Diagnoses: Kidney stone, Hydronephrosis Discharge ED - Sign-Out/Discharge Documenting (check all that apply): Sign-Out Patient Signing out patient TO: Huang Riggs - Discharge Plan Condition: Stable Disposition: HOME Prescriptions: Cephalexin CAP* [Keflex CAP*] 500 mg PO TID 7 Days #21 cap Patient Education Materials: Kidney Stones (ED), Hydronephrosis (ED) Forms: *Work Release Referrals: Mick Carter MD [Medical Doctor] - As Soon As Possible Eliud Dodd MD [Medical Doctor] - Additional Instructions: Follow up with Dr. Dodd, Urology, as soon as possible. Take antibiotics as prescribed, ibuprofen for pain. Return to ED with fever, chills, vomiting, worsening pain. - Billing Disposition and Condition Condition: STABLE Disposition: Home - Attestation Statements Document Initiated by Scribe: Yes Documenting Scribe: YAMILEX SILVERIO Provider For Whom Scribe is Documenting (Include Credential): EZEQUIEL HATHAWAY MD Scribe Attestation: YAMILEX Prince, scribed for EZEQUIEL HATHAWAY MD on 01/08/19 at 1842. Scribe Documentation Reviewed: Yes Provider Attestation: The documentation as recorded by the scribe, YAMILEX SILVERIO accurately reflects the service I personally performed and the decisions made by me, EZEQUIEL HATHAWAY MD Status of Raquel Document: Viewed
[2019-01-06 05:23] LABS: ABS Eosinophils 0.2 10^3/ul (0-0.6); ABS Monocytes 0.4 10^3/ul (0-0.8); ABS Neutrophils 6.2 10^3/ul (1.5-7.7); Eosinophil % 2.6 %; Hematocrit 34 % (35-47); Hemoglobin 11.8 g/dL (12.0-16.0); Lymphocyte % 22.5 %; Mean Corpuscular HGB Conc 34 g/dL (31-36); Mean Corpuscular Hemoglobin 34 pg (27-31); Mean Corpuscular Volume 97 fL (80-97); Nucleated Red Blood Cells % 0.1; Platelet Count 212 10^3/uL (150-450); Red Blood Count 3.53 10^6 /uL (3.70-4.87); Red Cell Distribution Width 13 % (10-15); White Blood Count 8.9 10^3/uL (3.5-10.8)
[2019-01-06 05:40] LABS: Albumin 3.3 g/dL (3.2-5.2); Albumin/Globulin Ratio 1.2 (1-3); BUN/Creatinine Ratio 14.6 (8-20); Calcium 8.1 mg/dL (8.6-10.3); EGFR African American 186.3 (>60); Globulin 2.7 g/dL (2-4); Potassium 3.6 mmol/L (3.5-5.0); Total Bilirubin 0.3 mg/dL (0.2-1.0)
[2019-01-06 06:47] LABS: Urine Appearance Clear; Urine Bacteria 1+ (Absent); Urine Bilirubin Negative (Negative); Urine Blood 2+ (Negative); Urine Color Yellow; Urine Glucose Negative (Negative); Urine Ketones Negative (Negative); Urine Nitrite Negative (Negative); Urine Protein Negative (Negative); Urine Red Blood Cell 3+(>10/hpf) (Absent); Urine Specific Gravity 1.015 (1.010-1.030); Urine Squamous Epithelial Cell Present (Absent); Urine Urobilinogen Negative (Negative); Urine White Blood Cell Trace(0-5/hpf) (Absent)
[2019-01-06] MEDS ORDERED: Acetaminophen TAB* 325 MG PO ONE (07:57)
--- NOTE | 2019-01-06 08:40 | ED ---
GI/ HPI - HPI Summary HPI Summary: Receiving sign-out from Dr. Weaver at shift change 0700 01/06/19 pending Renal US and disposition. Renal US: 1. Moderate to severe right hydronephrosis, no right uterovesical jet is seen. 2. Probable right renal calculi ED Provider has reviewed this report. Spoke with RADHA Gardner, who recommended admission for the patient. Dr. Olea, Hospitalist, accepted the patient for admission. This plan was discussed with the patient and she was agreeable with this plan. Dr. Olea advised discharging the patient after further treatment. A plan for discharge was discussed with the patient and she was agreeable with this plan. - History of Current Complaint Chief Complaint: EDFlankPain Time Seen by Provider: 01/06/19 04:28 Stated Complaint: FLANK PAIN PER PT Hx Obtained From: Patient Hx Last Menstrual Period: April 2016 Onset/Duration: Still Present Timing: Constant Severity: Severe Current Severity: Severe Pain Intensity: 10 Location of Pain: Flank - right Associated Signs and Symptoms: Positive: Nausea, Flank Pain - right - Allergy/Home Medications Allergies/Adverse Reactions: Allergies Allergy/AdvReac Type Severity Reaction Status Date / Time amoxicillin [From Augmentin] Allergy Vomiting Verified 10/03/18 15:10 clavulanic acid Allergy Vomiting Verified 10/03/18 15:10 [From Augmentin] sulfamethoxazole Allergy Swelling Verified 10/03/18 15:10 [From Bactrim] trimethoprim [From Bactrim] Allergy Swelling Verified 10/03/18 15:10 PMH/Surg Hx/FS Hx/Imm Hx Endocrine/Hematology History: Denies: Hx Diabetes, Hx Thyroid Disease Cardiovascular History: Denies: Hx Congestive Heart Failure, Hx Hypertension Respiratory History: Denies: Hx Asthma, Hx Chronic Obstructive Pulmonary Disease (COPD) GI History: Denies: Hx Ulcer History: Reports: Hx Kidney Infection, Hx Kidney Stones, Hx Renal Disease - PT. STATES LEFT KIDNEY HAS FAILED IN THE PAST. 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 Denies: Hx Clostridium Difficile, Hx Hepatitis, Hx Human Immunodeficiency Virus (HIV), Hx Shingles, Hx Tuberculosis, Hx Known/Suspected VRE, Hx Known/ Suspected VRSA, History Other Infectious Disease, Traveled Outside the [place] in Last 30 Days - Family History Known Family History: Positive: Hypertension, Diabetes, Other - colon cancer - Social History Alcohol Use: None Substance Use Type: Reports: None Smoking Status (MU): Light Every Day Tobacco Smoker Type: Cigarettes Amount Used/How Often: "occ cigs here and there" Have You Smoked in the Last Year: Yes Review of Systems Positive: Nausea Positive: flank pain - right All Other Systems Reviewed And Are Negative: Yes Physical Exam - Summary Physical Exam Summary: Appearance: Well-appearing, Well-nourished, somewhat restless and colicky in appearance. Left flank tenderness is noted. Skin: Warm, dry, no obvious rash Eyes: sclera anicteric, no conjunctival pallor ENT: mucous membranes moist, pharynx appears normal Neck: Supple, nontender Respiratory: Clear to auscultation, no signs of respiratory distress Cardiovascular: Normal S1, S2. No murmurs. Normal distal pulses in tibial and radial bilaterally. Abdomen: Soft, nontender, normal active bowel sounds present Musculoskeletal: Normal, Strength/ROM Intact Neurological: A&Ox3, awake and alert, mentation is normal, speech is fluent and appropriate Psychiatric: affect is normal, does not appear anxious or depressed Triage Information Reviewed: Yes Vital Signs On Initial Exam: Initial Vitals Temp Pulse Resp BP Pulse Ox 97.7 F 150 20 114/78 98 01/06/19 04:23 01/06/19 04:23 01/06/19 04:23 01/06/19 04:23 01/06/19 04:23 Vital Signs Reviewed: Yes Procedures - Sedation Patient Received Moderate/Deep Sedation with Procedure: No Diagnostics - Vital Signs Vital Signs Temp Pulse Resp BP Pulse Ox 01/06/19 05:09 72 13 118/61 100 01/06/19 05:00 81 17 100 01/06/19 04:33 93 17 118/76 100 01/06/19 04:23 97.7 F 150 20 114/78 98 - Laboratory Lab Results: Lab Results 01/06/19 01/06/19 01/06/19 Range/Units 05:09 05:09 06:00 WBC 8.9 (3.5-10.8) 10^3/uL RBC 3.53 L (3.70-4.87) 10^6 /uL Hgb 11.8 L (12.0-16.0) g/dL Hct 34 L (35-47) % MCV 97 (80-97) fL MCH 34 H (27-31) pg MCHC 34 (31-36) g/dL RDW 13 (10-15) % Plt Count 212 (150-450) 10^3/uL MPV 7.0 L (7.4-10.4) fL Neut % (Auto) 69.7 % Lymph % (Auto) 22.5 % Stewart % (Auto) 4.9 % Eos % (Auto) 2.6 % Baso % (Auto) 0.3 % Absolute Neuts (auto) 6.2 (1.5-7.7) 10^3/ul Absolute Lymphs (auto) 2.0 (1.0-4.8) 10^3/ul Absolute Monos (auto) 0.4 (0-0.8) 10^3/ul Absolute Eos (auto) 0.2 (0-0.6) 10^3/ul Absolute Basos (auto) 0.0 (0-0.2) 10^3/ul Absolute Nucleated RBC 0.0 10^3/ul Nucleated RBC % 0.1 Sodium 134 L (135-145) mmol/L Potassium 3.6 (3.5-5.0) mmol/L Chloride 108 (101-111) mmol/L Carbon Dioxide 21 L (22-32) mmol/L Anion Gap 5 (2-11) mmol/L BUN 7 (6-24) mg/dL Creatinine 0.48 L (0.51-0.95) mg/dL Est GFR ( Amer) 186.3 (>60) Est GFR (Non-Af Amer) 154.0 (>60) BUN/Creatinine Ratio 14.6 (8-20) Glucose 92 (70-100) mg/dL Calcium 8.1 L (8.6-10.3) mg/dL Total Bilirubin 0.30 (0.2-1.0) mg/dL AST 10 L (13-39) U/L ALT 10 (7-52) U/L Alkaline Phosphatase 61 (34-104) U/L Total Protein 6.0 L (6.4-8.9) g/dL Albumin 3.3 (3.2-5.2) g/dL Globulin 2.7 (2-4) g/dL Albumin/Globulin Ratio 1.2 (1-3) Urine Color Yellow Urine Appearance Clear Urine pH 6.0 (5-9) Ur Specific Upper Tract 1.015 (1.010-1.030) Urine Protein Negative (Negative) Urine Ketones Negative (Negative) Urine Blood 2+ A (Negative) Urine Nitrate Negative (Negative) Urine Bilirubin Negative (Negative) Urine Urobilinogen Negative (Negative) Ur Leukocyte Esterase Negative (Negative) Urine WBC (Auto) Trace(0-5/hpf) (Absent) Urine RBC (Auto) 3+(>10/hpf) A (Absent) Ur Squamous Epith Cells Present A (Absent) Urine Bacteria 1+ A (Absent) Urine Glucose Negative (Negative) Result Diagrams: 01/06/19 05:09 01/06/19 05:09 Lab Statement: Any lab studies that have been ordered have been reviewed, and results considered in the medical decision making process. Re-Evaluation - Re-Evaluation First Eval Re-Evaluation Time: 09:05 Comment: Patient is aware that myself and Dr. Carter would like to admit her. She is currently debating whether she is agreeable with admission. Second Eval Re-Evaluation Time: 09:28 Comment: Patient is agreeable with admission plan. GIGU Course/Dx - Course Course Of Treatment: Patient is here with right flank pain. Patient was signed out from Dr. perry pending an ultrasound. Patient's UA shows hematuria. Patient has no clinical symptoms or laboratory symptoms consistent with pyonephritis. Patient had an ultrasound which showed severe hydronephrosis and no ureteral jets. [facility] was called and they recommended admission. They were going to contact urology as urology is not bottom ironer today. Patient is admitted to the hospitalist. - Diagnoses Provider Diagnoses: Kidney stone, Hydronephrosis Discharge ED - Sign-Out/Discharge Documenting (check all that apply): Patient Departure - Admission - Discharge Plan Condition: Stable Disposition: HOME Prescriptions: Cephalexin CAP* [Keflex CAP*] 500 mg PO TID 7 Days #21 cap Patient Education Materials: Kidney Stones (ED), Hydronephrosis (ED) Forms: *Work Release Referrals: Mick Carter MD [Medical Doctor] - As Soon As Possible Eliud Dodd MD [Medical Doctor] - Additional Instructions: Follow up with Dr. Dodd, Urology, as soon as possible. Take antibiotics as prescribed, ibuprofen for pain. Return to ED with fever, chills, vomiting, worsening pain. - Billing Disposition and Condition Condition: STABLE Disposition: Home - Attestation Statements Document Initiated by Raquel: Yes Documenting Scribe: Jeronimo Cohen Provider For Whom Scribe is Documenting (Include Credential): Huang Riggs MD Scribe Attestation: I, Jeronimo Cohen, scribed for Huang Riggs MD on 01/06/19 at 1754. Scribe Documentation Reviewed: Yes Provider Attestation: The documentation as recorded by the Jeronimo mancuso accurately reflects the service I personally performed and the decisions made by me, Huang Riggs MD Status of Scribe Document: Viewed
[2019-01-06] MEDS ORDERED: Acetaminophen TAB* 325 MG PO PRN (10:53)
[2019-01-06] MEDS ORDERED: Nicotine PATCH 14 MG/24 HR* PATCH TRANSDERM SCH (11:00)
[2019-01-06] MEDS ORDERED: NS 0.9% 1000 ML** 1,000 ML IV SCH (11:00)
[2019-01-06 13:16] VITALS: BP 120/70
--- NOTE | 2019-01-06 13:40 | CONS ---
[facility] MEDICINE CONSULTATION REPORT: DATE OF CONSULT: 01/06/19 PROVIDER: Martha Padron NP ATTENDING PHYSICIAN: Dr. Riggs. CONSULTING PHYSICIAN: Dr. Vinny Sousa (dictated by Martha Padron NP). REASON FOR CONSULT: Hydronephrosis. HISTORY OF PRESENT ILLNESS: Ms. Bartholomew is a 28-year-old female with past medical history significant for kidney stones and pyelonephritis, who presented to the emergency room with complaints of right flank pain that started at 3 a.m. this morning. The patient does report that she is approximately 18 weeks' . The patient reports that she woke up this morning, thought she had to urinate, she went to the bathroom, was unable to urinate and then developed right flank pain that progressively got worse over the next hour, so she presented to the emergency room for further evaluation. As the patient does report she has a history of kidney stones and these episodes are similar to her previous episodes of flank pain with kidney stones. The patient does report that after a while she was able to urinate. While in the emergency room, the patient received Tylenol and was given IV fluids. The patient reports that currently her pain has subsided. She no longer has any CVA tenderness. She has been afebrile and does not have an elevation in her WBC's. She did have a renal ultrasound that showed severe hydronephrosis in the right kidney. Due to these findings, [facility] was asked to see and evaluate her for admission. PAST MEDICAL HISTORY: Significant for kidney stones, pyelonephritis. PAST SURGICAL HISTORY: None. HOME MEDICATIONS: 1. vitamin. 2. Tylenol as needed. ALLERGIES: BACTRIM and AUGMENTIN. FAMILY HISTORY: Grandfather with history of an MA in his 70s. Father with diabetes. Grandmother with history of cancer, at the age of 63, unknown type cancer. SOCIAL HISTORY: The patient reports she smokes 1 to 2 cigarettes daily. Denies any alcohol or illicit drug use. She is . Surrogate decision maker in the event she is unable to make her own decision is her . She is a full code. REVIEW OF SYSTEMS: The patient denies any fever, chills, unintended weight loss , chest pain, edema, cough, hemoptysis, or shortness of breath. She did report some nausea associated with her episode of right flank pain. Denies any diarrhea. She did complain of right CVA tenderness with flank pain, which has now subsided. She denies any gross hematuria. She does report difficulty with urination, which is now resolved. Denies any focal weakness, sensory loss, visual complaints, dysphagia, arthralgias, myalgias, rashes, lesions, open sores , psychosis or anxiety. PHYSICAL EXAM: General: At this time, Ms. Bartholomew is a 28-year-old female. She is resting comfortably on the stretcher in the emergency room. She is in no acute distress. Vital signs: Blood pressure 119/61, heart rate 70, respirations 15, O2 saturations 100%, temperature 97.7. HEENT: Head is atraumatic, normocephalic. Eyes: EOMs are intact. Sclerae anicteric and not pale. Oral mucosa appears to be moist. Neck is supple. Lungs are clear to auscultation bilaterally. No wheezes, rales, or rhonchi. Cardiac: S1, S2. Regular rate and rhythm. No murmurs, rubs, or gallops. Abdomen: Soft and nontender. She has no CVA tenderness at this time. Bowel sounds are present x4. Extremities: She is able to move all 4 extremities. There is no clubbing or cyanosis. DIAGNOSTIC STUDIES/LAB DATA: WBCs are 8.9, RBCs 4.53, hemoglobin 11.8, hematocrit 34, platelet count 212. Sodium 134, potassium 3.6, chloride 108, carbon dioxide is 21, anion gap of 5, BUN 7, creatinine 0.48, calcium 8.1, AST 10, ALT 10, alkaline phosphatase 61. Urine was within normal limits with the exception urine blood was 2+, urine wbc's were 3+, squamous epithelial cells were present and bacteria was 1+. She had renal ultrasound, which showed [id number] right hydronephrosis. No ureterovesical jet is seen. Probable right renal calculi. IMPRESSION AND PLAN: Ms. Bartholomew is a 28-year-old female with past medical history significant for kidney stones, history of pyelonephritis, who is 18 weeks' , who presented to the emergency room for complaints of right flank pain. Hospital Medicine was asked to see due to her right flank pain. Recommendations are as follows: 1. Right hydronephrosis: Emergency room did consult Dr. Dodd, who has recommended repeat ultrasound as the patient has no longer has pain and is comfortable with no difficulty with urination. Repeat ultrasound is ordered. He has also recommended that the patient could be discharged home if the ultrasound has improved and shows bilateral urethral jets. Further recommendations based on pending ultrasound. 2. : The ER did talk to Dr. Carter from [facility], who has recommended the patient to be observed until evaluation by Dr. Dodd. The patient is not currently having any contraction or abdominal pain. We will continue to monitor. 3. FEN: She can have regular diet. 4. Code status: She is a full code. 5. DVT prophylaxis: I will encourage ambulation. TIME SPENT: Time spent on this consultation was 45 minutes, greater than half that time was spent at the bedside reviewing events leading thus far to her hospitalization, performing physical exam, and reviewing my plan of care. Next, I have discussed this with my attending, Dr. Vinny Sousa, he is in agreement with my plan. MARTHA PADRON, LEISA Addendum: Repeat ultrasound shows bilateral urethral jets. Continues to show right moderate to severe hydronephrosis. Dr. Dodd was updated reports that the patient can be discharged. Patient should be discharged with Keflex 500 mg TID for 7 days. She should call the office for follow up appointment on Wednesday with Dr. Dodd. Called Dr. Carter - updated on patients exams. Ok to discharge home with Keflex and follow up. Dr. Riggs and DR. Sousa were updated - Patient's care was transferred to ER attending for discharge. The patient should return to the Emergency room with any flank pain, fever, chills, inability to urinate or any other concerns. The patient verbalized understanding. [id number]/[facility] #: [id number] [place]
[2019-01-06] MEDS ORDERED: Nicotine Patch Removal NOTE PATCH OFF SCH (21:00)
[2019-01-07] MEDS ORDERED: Prenatal Vitamin TAB PO SCH (09:00)
== END 2019-01-06 14:02 | disposition home or self-care (01) ==
LOC: ED 04:20 → SSU 09:58 → UNDOADMIN 09:58
DX: O99.89 Other specified diseases and conditions complicating pregnancy, childbirth and the puerperium (principal); N13.30 Unspecified hydronephrosis; Z3A.18 18 weeks gestation of pregnancy; Z87.442 Personal history of urinary calculi; Z88.1 Allergy status to other antibiotic agents; Z88.0 Allergy status to penicillin; Z88.2 Allergy status to sulfonamides; F17.210 Nicotine dependence, cigarettes, uncomplicated
CPT/HCPCS: 36415; 76770; 76775; 80053; 81003; 81015; 85025; 87040; 87086; 96361; 96374; 99283; A9270-GY; J1885